=== PATIENT | male | born 1985 | race Caucasian/White ===

== ENCOUNTER 2016-12-26 03:41 | Emergency (ER) | payer SELFPAY ==
[~2016-12-26] VITALS: Ht 170.2 cm; Wt 88.5 kg
[2016-12-26 04:45] LABS: CALCIUM 8.6 mg/dL (8.5-10.1); CARBON DIOXIDE 24.9 mmol/L (21-32); CHLORIDE SERUM 104 mmol/L (98-107); CREATININE SERUM 0.7 mg/dL (0.7-1.3); GFR1 > 60 mL/min; GLUCOSE SERUM 105 mg/dL (74-106); POTASSIUM SERUM 3.6 mmol/L (3.5-5.1); SODIUM SERUM 142 mmol/L (136-145)
[2016-12-26 05:03] VITALS: BP 93/55
== END 2016-12-26 05:42 | disposition home or self-care (01) ==
LOC: ED 03:41
PROVIDERS: Emergency Medicine
DX: S80.11XA Contusion of right lower leg, initial encounter (principal); S80.811A Abrasion, right lower leg, initial encounter; F10.129 Alcohol abuse with intoxication, unspecified; X58.XXXA Exposure to other specified factors, initial encounter; Y93.89 Activity, other specified; Y99.8 Other external cause status; Y92.481 Parking lot as the place of occurrence of the external cause
CPT/HCPCS: 36415; 90715